=== PATIENT | male | born 1930 | race Caucasian/White ===

== ENCOUNTER 2019-04-27 00:46 | Emergency (ER) | payer MEDICARE ==
[~2019-04-27] VITALS: Ht 177.8 cm; Wt 68.0 kg
[2019-04-27 01:16] LABS: ABSOLUTE BASOPHILS 0.1 thou/uL (0.0-0.2); ABSOLUTE EOSINOPHILS 0.3 thou/uL (0.0-0.7); ABSOLUTE LYMPHOCYTES 2.1 thou/uL (0.8-5.3); ABSOLUTE MONOCYTES 0.6 thou/uL (0.0-1.2); ABSOLUTE NEUTROPHILS 3.9 thou/uL (1.6-8.1); BASOPHILS 0.9 %; HEMATOCRIT 42.5 % (42.0-52.0); HEMOGLOBIN 14.5 gm/dL (14.0-18.0); LYMPHOCYTES 30.8 %; MCH 31.1 pg (26.0-34.0); MCHC 34.2 g/dL (28.0-37.0); MONOCYTES 8.6 %; MPV 9.8 fl. (7.2-11.1); NUCLEATED RBCS 0 /100WBC; PLATELET COUNT* 127 thou/uL (150-400); POLYS 55.7 %; RBC 4.67 mil/uL (4.50-6.00); RDW-CV 14.3 % (10.5-14.5)
[2019-04-27 01:26] LABS: ANION GAP 9 mmol/L (7-16); BUN 18 mg/dL (7-18); CHLORIDE 106 mmol/L (98-107); CO2 29 mmol/L (21-32); CREATININE 0.9 mg/dL (0.6-1.3); GLUCOSE 86 mg/dL (70-99); INR 1.7; SODIUM 144 mmol/L (136-145)
[2019-04-27 01:27] LABS: URINE BILIRUBIN NEGATIVE (Negative); URINE BLOOD NEGATIVE (Negative); URINE CLARITY CLEAR; URINE COLOR YELLOW; URINE GLUCOSE-RANDOM NEGATIVE (Negative); URINE KETONES NEGATIVE (Negative); URINE LEUKOCYTES-REFLEX NEGATIVE (Negative); URINE NITRITE-REFLEX NEGATIVE (Negative); URINE PROTEIN NEGATIVE (Negative); URINE SPECIFIC GRAVITY 1.015 (1.005-1.030); URINE UROBILINOGEN 0.2 E.U./dl (0.2-1.0)
[2019-04-27] MEDS ORDERED: CARVEDILOL12.5 MG PO (01:34)
[2019-04-27] MEDS ORDERED: SIMVASTATIN40 MG PO (01:34)
[2019-04-27] MEDS ORDERED: XARELTO20 MG PO (01:34)
[2019-04-27] MEDS ORDERED: DOXYCYCLINE 10100 MG PO (01:35)
[2019-04-27] MEDS ORDERED: ARICEPT 5 MG TAB5 MG PO (01:35)
[2019-04-27 01:36] LABS: ALBUMIN 3.7 g/dL (3.4-5.0); ALKALINE PHOSPHATASE 66 U/L (46-116); LIPASE 179 U/L (73-393); NT-PRO BRAIN NAT PEPTIDE 1242 pg/mL (<300); SGOT 28 U/L (15-37); SGPT 39 U/L (30-65); TOTAL BILIRUBIN 0.8 mg/dL (<0.1-1.0); TOTAL PROTEIN 6.7 g/dL (6.4-8.2); TROPONIN-I LEVEL <0.06 ng/mL (<0.06)
[2019-04-27] MEDS ORDERED: DEPAKOTE125 MG PO (01:36)
[2019-04-27] MEDS ORDERED: ZETIA10 MG PO (01:36)
[2019-04-27 04:10] VITALS: BP 110/80
--- NOTE | 2019-04-27 11:24 | EKG ---
[place] [address] ELECTROCARDIOGRAM REPORT Name: SUSAN SANTORO [id number] Admission: 04/27/19 Attend Phys: Discharge: 04/27/19 Date of : 34 Report #: [id number] THIS REPORT FOR: //name// [facility] ED Test Date: 2019-04-27 Test Time: 00:48:01 Pat Name: SUSAN SANTORO Department: Room: Gender: M Laundry Aid: MA : 1930 Requested By: Lauren Obando Order Number: [id number] MD: Jeremy Sierra Measurements Intervals [place] Rate: 70 P: 115 TX: 45 QRS: -31 QRSD: 213 T: 147 QT: 485 QTc: 524 Interpretive Statements Ventricular-paced rhythm No further analysis attempted due to paced rhythm No previous ECG available for comparison Electronically Signed On 04-27-2019 11:24:28 CDT by Jeremy Sierra [email or web address] <ELECTRONICALLY SIGNED> By: Jeremy Sierra MD, [facility] 04/27/19 1124 0048 0048 Jeremy Sierra MD, FACC /EPI
== END 2019-04-27 04:11 | disposition home or self-care (01) ==
LOC: M.ERS 00:46
PROVIDERS: Emergency Medicine
DX: F03.90 Unspecified dementia, unspecified severity, without behavioral disturbance, psychotic disturbance, mood disturbance, and anxiety (principal)